=== PATIENT | female | born 1980 | race Caucasian/White ===

== ENCOUNTER 2024-03-18 00:10 | Emergency (ER) | payer MEDICAID ==
[~2024-03-18] VITALS: Ht 180.3 cm; Wt 156.0 kg
[~2024-03-18 00:10] MED LIST: ABIL10 PO; AMLO10TA80 PO; ASPI-1497 PO; ATOR40TA70 PO; CLOP-31 PO; HYDR25TA PO; PROT40 PO; TIZA2CAP7 PO; TRAZ150T78 PO
[2024-03-18 00:20] VITALS: O2SAT 99
[2024-03-18 02:30] VITALS: BP 162/91; PULSE 63; RESP 18; TEMP 97.4; O2SAT 99
[2024-03-18 02:59] LABS: BASOPHILS % 0.6 % (0.0-2.0); EOSINOPHILS % 0.8 % (0.0-5.0); HEMATOCRIT. 44.5 % (36.0-48.0); LYMPHOCYTES % 14.7 % (20.0-50.0); MEAN CORPUSCULAR HEMOGLOBIN 30.4 pg (28.0-32.0); MEAN CORPUSCULAR HGB CONC 33.6 g/dL (31.0-37.0); MEAN CORPUSCULAR VOLUME 90.2 fL (81.0-99.0); MEAN PLATELET VOLUME 7.9 fl (7.4-10.4); NEUTROPHILS % 80.9 % (40.0-76.0); PLATELET 256 x1000/uL (130-400); RED BLOOD CELL COUNT 4.93 mill/uL (4.2-5.4); WHITE BLOOD COUNT 10.5 x1000/uL (4.5-11.0)
[2024-03-18 03:03] LABS: CHLORIDE 106 mEq/L (98-107); POTASSIUM 4.4 mEq/L (3.5-5.1); SODIUM 139 mEq/L (136-145)
[2024-03-18 03:04] LABS: CALCIUM 9.5 mg/dL (8.7-10.4); CARBON DIOXIDE 28 mEq/L (21-32)
[2024-03-18 03:09] LABS: CREATININE 0.7 mg/dL (0.6-1.0); GLUCOSE 120 mg/dL (70-105); UREA NITROGEN BLOOD 9 mg/dL (9-23)
[2024-03-18 03:11] LABS: ALANINE AMINOTRANSFERASE 17 IU/L (10-49); ALBUMIN 4.6 g/dL (3.2-4.8); ASPARTATE AMINOTRANSFERASE 17 IU/L (<34); BILIRUBIN TOTAL 0.3 mg/dL (0.1-1.0); PROTEIN TOTAL 7.5 g/dL (6.0-8.3)
[2024-03-18 03:35] LABS: BILIRUBIN DIRECT < 0.1 mg/dL (<=3.0)
[2024-03-18 05:34] LABS: CLARITY URINE CLEAR (CLEAR); COLOR URINE DARK YELLOW (YELLOW); GLUCOSE URINE NEGATIVE (NEGATIVE); KETONES URINE NEGATIVE (NEGATIVE); LEUKOCYTE ESTERASE URINE TRACE (NEGATIVE); NITRITE URINE NEGATIVE (NEGATIVE); OCCULT BLOOD URINE NEGATIVE (NEGATIVE); PH URINE 6.5 (4.5-8.0); PROTEIN URINE 1+ (NEGATIVE); SPECIFIC GRAVITY URINE 1.028 (1.005-1.030)
[2024-03-18 06:47] LABS: SQUAMOUS EPITHELIAL CELL URINE FEW /lpf (RARE/1+)
[2024-03-18 06:49] LABS: BACTERIA URINE NONE SEEN; RBC URINE NONE SEEN /hpf (0-2)
== END 2024-03-18 04:39 | disposition left against medical advice (07) ==
LOC: ER 00:35
DX: R11.2 Nausea with vomiting, unspecified (principal); Z53.21 Procedure and treatment not carried out due to patient leaving prior to being seen by health care provider
CPT/HCPCS: 36415; 80048; 80076; 81003; 85025; 93005

== ENCOUNTER 2024-04-30 14:14 | Emergency (ER) | payer MEDICAID, OTHER ==
[~2024-04-30] VITALS: Ht 177.8 cm; Wt 150.0 kg
[~2024-04-30 14:14] MED LIST changes: +AMIT10TA6 PO; +CLON1PAT10 TP; +LISI10TA26 PO; +METF-817 PO; +NAPR-681 PO
[2024-04-30 14:18] VITALS: BP 161/94; PULSE 85; RESP 18; TEMP 98.4; O2SAT 97
[2024-04-30] MEDS ORDERED: DIPHENHYDRAMINE 50MG CAPSULE PO ONE (14:30)
[2024-04-30] MEDS: DIPHENHYDRAMINE 25MG CAPSULE PO NR (15:09)
[2024-04-30] MEDS: FAMOTIDINE 20MG TABLET PO ONE (15:09)
[2024-04-30] MEDS: DEXAMETHASONE 2MG TABLET PO ONE (15:22)
== END 2024-04-30 14:46 | disposition home or self-care (01) ==
LOC: ER 14:14
DX: T78.2XXA Anaphylactic shock, unspecified, initial encounter (principal); F41.9 Anxiety disorder, unspecified; E78.00 Pure hypercholesterolemia, unspecified; J45.909 Unspecified asthma, uncomplicated; F31.9 Bipolar disorder, unspecified; I10 Essential (primary) hypertension; Z79.899 Other long term (current) drug therapy; Z86.73 Personal history of transient ischemic attack (TIA), and cerebral infarction without residual deficits; Z90.49 Acquired absence of other specified parts of digestive tract; Z88.1 Allergy status to other antibiotic agents; Z88.5 Allergy status to narcotic agent; Z88.8 Allergy status to other drugs, medicaments and biological substances; X58.XXXA Exposure to other specified factors, initial encounter
CPT/HCPCS: 99291; J8540; Q0163

== ENCOUNTER 2025-05-26 05:22 | Emergency (ER) | payer OTHER ==
[~2025-05-26] VITALS: Ht 182.9 cm; Wt 127.0 kg
[~2025-05-26 05:22] MED LIST changes: +AMIT10TA13 PO; -AMIT10TA6 PO
[2025-05-26 05:32] VITALS: O2SAT 99
[2025-05-26 05:40] VITALS: BP 176/93; PULSE 67; RESP 17; TEMP 36.9; O2SAT 98
[2025-05-26] MEDS ORDERED: SODIUM CHLORIDE 0.9% 1,000 ML IV ONE (05:45)
== END 2025-05-26 07:30 | disposition left against medical advice (07) ==
LOC: ER 05:22 → CANBEDREQ 07:46
DX: R40.4 Transient alteration of awareness (principal); R55 Syncope and collapse; E78.00 Pure hypercholesterolemia, unspecified; F31.9 Bipolar disorder, unspecified; F41.9 Anxiety disorder, unspecified; I10 Essential (primary) hypertension; J45.909 Unspecified asthma, uncomplicated; Z59.01 Sheltered homelessness; Z79.02 Long term (current) use of antithrombotics/antiplatelets; Z79.1 Long term (current) use of non-steroidal anti-inflammatories (NSAID); Z79.82 Long term (current) use of aspirin; Z79.84 Long term (current) use of oral hypoglycemic drugs; Z79.899 Other long term (current) drug therapy; Z86.73 Personal history of transient ischemic attack (TIA), and cerebral infarction without residual deficits; Z88.1 Allergy status to other antibiotic agents; Z88.5 Allergy status to narcotic agent; Z88.8 Allergy status to other drugs, medicaments and biological substances; Z90.49 Acquired absence of other specified parts of digestive tract; Z91.013 Allergy to seafood
CPT/HCPCS: 99284; 70450; 71045; 82962; 93005; J7030